=== PATIENT | female | born 1945 | race Caucasian/White ===

== ENCOUNTER 2017-12-25 11:12 | Emergency (ER) | payer MEDICARE, MEDICAID ==
[~2017-12-25] VITALS: Ht 154.9 cm; Wt 46.3 kg
[~2017-12-25 11:12] MED LIST: 24HOUR ALLERGY10 MG PO; ACID CONTROL20 MG; ALEVE220 MG PO; AMLODIPINE BESY10 MG; APAP500 PO; ARICEPT10 MG PO; ATIVAN0.5 MG; ATIVAN0.5 MG PO; AZITHROMYCIN 2250 MG PO; BACTRIM DS TAB1 EACH; BAYER CHEWABLE81 MG PO; BENADRYL25 MG PO; COLACE100 MG PO; COMPAZINE10 MG PO; CYMBALTA60 MG; DUONEB 2.5-0.5 M3 ML INH; ESCITALOPRAM OX20 MG PO; FENTANYL PA50 MCG/HR; FLONASE 0.05%50 MCG NASAL; FLUCONAZOLE 10100 MG PO; HYDROCODON-ACE1 EAC5; HYDROCODONE-APA1 TA1 PO; HYDROCORTISONE30 G9 MISCELL; IBUPROFEN 800800 M1 PO; KEFLEX500 MG PO; LASIX 40 MG TAB40 M2 PO; LASIX 80 MG TAB80 MG PO; LEVAQUIN 500 M500 M2 PO; LISINOPRIL20 MG PO; LOPRESSOR25; LOPRESSOR25 PO; MELATONIN3 MG; MUCINEX TA600 MG/TA2 PO; MUCINEX600 MG PO; MULTI VITAMIN1 EACH PO; NAMENDA 5 MG TAB5 M1 PO; NAMENDA XR14 MG; NORCO 10-325 T1 EACH PO; NYSTATIN 1100000 U/M PO; OCUVITE EYE +1 EACH PO; POTASSIUM CHLO20 ME1; PRED FORTE 1% EY5 M1 OPHTHALMIC; PREDNISONE 20 M20 MG PO; PREPARATION H O28 GM RC; SEROQUEL 25 MG25 M1; SEROQUEL 25 MG25 M1 PO; TESSALON PERLE100 MG PO; TRAMADOL 50 MG50 MG PO; TRIAMCINOLONE A80 G2 TOP; TUMS; VESICARE 5 MG TA5 MG PO; [UNRECOGNIZED DRUG - OTHER] OPHTHALMIC
[2017-12-25] MEDS ORDERED: LOPRESSOR50 PO (11:31)
[2017-12-25 11:46] LABS: ABSOLUTE EOSINOPHILS 0.3 thou/uL (0.0-0.7); ABSOLUTE LYMPHOCYTES 1.3 thou/uL (0.8-5.3); ABSOLUTE MONOCYTES 0.5 thou/uL (0.0-1.2); ABSOLUTE NEUTROPHILS 7.5 thou/uL (1.6-8.1); BASOPHILS 0.4 %; EOSINOPHILS 3.5 %; HEMATOCRIT 45.2 % (37.0-47.0); LYMPHOCYTES 13.1 %; MCH 31.6 pg (26.0-34.0); MCHC 33.2 g/dL (28.0-37.0); MCV 95.2 fL (80.0-100.0); MONOCYTES 5.6 %; MPV 8.5 fl. (7.2-11.1); NUCLEATED RBCS 0 /100WBC; PLATELET COUNT* 245 thou/uL (150-400); POLYS 77.4 %; RBC 4.75 mil/uL (4.20-5.00); RDW-CV 13.4 % (10.5-14.5); WBC 9.7 thou/uL (4.0-11.0)
[2017-12-25 11:57] LABS: ANION GAP 10 mmol/L (7-16); BUN 25 mg/dL (7-18); CALCIUM 8.8 mg/dL (8.5-10.1); CHLORIDE 105 mmol/L (98-107); CO2 27 mmol/L (21-32); CREATININE 0.9 mg/dL (0.6-1.3); GLUCOSE 88 mg/dL (70-99); POTASSIUM 3.1 mmol/L (3.5-5.1); SODIUM 142 mmol/L (136-145)
[2017-12-25 12:04] LABS: ALBUMIN 3.6 g/dL (3.4-5.0); ALKALINE PHOSPHATASE 83 U/L (46-116); SGOT 14 U/L (15-37); SGPT 14 U/L (30-65); TOTAL BILIRUBIN 0.7 mg/dL (<0.1-1.0); TOTAL PROTEIN 8.3 g/dL (6.4-8.2); TROPONIN-I LEVEL <0.06 ng/mL (<0.06)
[2017-12-25] MEDS ORDERED: TESSALON PERLE100 MG PO (12:22)
[2017-12-25] MEDS ORDERED: ZPAK PO (12:22)
[2017-12-25] MEDS ORDERED: POTASSIUM20 PO (12:23)
[2017-12-25 13:30] VITALS: BP 156/105
--- NOTE | 2017-12-26 11:17 | EKG ---
[place] [address] ELECTROCARDIOGRAM REPORT Name: JENNIFER RODRIGUES Room: [facility]#: [id number] Admission: 12/25/17 Attend Phys: Discharge: 12/25/17 Date of : 43 Report #: [id number] THIS REPORT FOR: //name// [facility] ED Test Date: 2017-12-25 Test Time: 12:40:09 Pat Name: JENNIFER RODRIGUES Department: Room: Gender: F Mine Exploration Engineer: ROSEANNA : 1945 Requested By: Jackie Bay Order Number: [id number] MD: Luis Jeffery Measurements Intervals [place] Rate: 63 P: 34 MA: 181 QRS: -9 QRSD: 83 T: 53 QT: 414 QTc: 424 Interpretive Statements Sinus rhythm nonspecific st changes Compared to ECG 05/11/2017 12:34:26 No significant changes Electronically Signed On 12-26-2017 11:17:07 CDT by Luis Jeffery [email or web address] <ELECTRONICALLY SIGNED> By: Luis Jeffery MD, [facility] 12/26/17 1117 1240 1240 Luis Jeffery MD, FACC /EPI
== END 2017-12-25 13:30 | disposition home or self-care (01) ==
LOC: M.ERS 11:12
PROVIDERS: Physician Assistant
DX: J20.9 Acute bronchitis, unspecified (principal); E87.6 Hypokalemia; Z88.8 Allergy status to other drugs, medicaments and biological substances

== ENCOUNTER 2018-05-30 14:23 | Inpatient (IN) | payer MEDICARE, MEDICAID ==
[~2018-05-30] VITALS: Ht 157.5 cm; Wt 52.6 kg
[~2018-05-30 14:23] MED LIST changes: +LOPRESSOR50 PO; +POTASSIUM20 PO; +ZPAK PO
[2018-05-30 14:24] VITALS: BP 128/59
[2018-05-30] MEDS ORDERED: ALBUTEROL2.5 MG/31 INH (14:35)
[2018-05-30] MEDS ORDERED: XANAX 0.25 MG0.25 MG PO (14:36)
[2018-05-30] MEDS ORDERED: IBUPROFEN 400400 M2 PO (14:38)
[2018-05-30] MEDS ORDERED: TRIAMCINOLONE A80 G2 TOP (14:39)
[2018-05-30 15:25] LABS: ABSOLUTE LYMPHOCYTES 1.4 thou/uL (0.8-5.3); ABSOLUTE MONOCYTES 0.7 thou/uL (0.0-1.2); ABSOLUTE NEUTROPHILS 4.2 thou/uL (1.6-8.1); BASOPHILS 0.6 %; EOSINOPHILS 0.1 %; HEMOGLOBIN 13.9 gm/dL (12.0-15.0); LYMPHOCYTES 22.6 %; MCH 31.9 pg (26.0-34.0); MCHC 33.1 g/dL (28.0-37.0); MCV 96.2 fL (80.0-100.0); MONOCYTES 11.2 %; MPV 8.5 fl. (7.2-11.1); NUCLEATED RBCS 0 /100WBC; PLATELET COUNT* 163 thou/uL (150-400); POLYS 65.5 %; RBC 4.36 mil/uL (4.20-5.00); RDW-CV 13.3 % (10.5-14.5); WBC 6.4 thou/uL (4.0-11.0)
[2018-05-30 15:35] LABS: CALCIUM 8.3 mg/dL (8.5-10.1); CREATININE 2.4 mg/dL (0.6-1.3); POTASSIUM 3.6 mmol/L (3.5-5.1)
[2018-05-30 15:44] LABS: BE -4.5 mmol/L (-2 to +3); HCO3 20.8 mmol/L (22.0-26.0); PCO2 39.2 mmHg (35.0-45.0); PO2 73.7 mmHg (75.0-100.0); pH 7.342 (7.340-7.450)
[2018-05-30 15:47] LABS: ALBUMIN 3.1 g/dL (3.4-5.0); MAGNESIUM 2.2 mg/dL (1.8-2.4); TOTAL BILIRUBIN 0.3 mg/dL (<0.1-1.0); TOTAL PROTEIN 7.4 g/dL (6.4-8.2)
[2018-05-30 16:13] LABS: URINE BILIRUBIN NEGATIVE (Negative); URINE BLOOD 3+ (Negative); URINE COLOR YELLOW; URINE GLUCOSE-RANDOM NEGATIVE (Negative); URINE KETONES NEGATIVE (Negative); URINE NITRITE-REFLEX NEGATIVE (Negative); URINE PROTEIN 1+ (Negative); URINE SPECIFIC GRAVITY >= 1.030 (1.005-1.030); URINE UROBILINOGEN 0.2 E.U./dl (0.2-1.0)
[2018-05-30 16:14] LABS: URINE CLARITY CLOUDY; URINE LEUKOCYTES-REFLEX 2+ (Negative)
[2018-05-30 16:23] LABS: CASTS None Seen /LPF (None Seen); CRYSTALS None Seen /LPF (None Seen); SQUAMOUS 0-3 Few /LPF (0-3); URINE RBC 0-2 Rare /HPF (0-2); URINE WBC-REFLEX >25 Many /HPF (0-5)
--- NOTE | 2018-05-30 16:31 | EKG ---
[place] [address] ELECTROCARDIOGRAM REPORT Name: JENNIFER RODRIGUES Room: [place] [address] ADM IN [facility]#: [id number] Admission: 05/30/18 Attend Phys: Tamara Whitman Discharge: Date of : 43 Report #: [id number] THIS REPORT FOR: //name// [facility] ED Test Date: 2018-05-30 Test Time: 15:53:22 Pat Name: JENNIFER RODRIGUES Department: Room: [facility] Gender: F Dental Coordinator: Sarah ORTEGA : 1945 Requested By: Jackie Swan Order Number: [id number] MD: Ortega Pitts Measurements Intervals [place] Rate: 75 P: 54 IN: 169 QRS: 9 QRSD: 85 T: 33 QT: 401 QTc: 448 Interpretive Statements Sinus rhythm Compared to ECG 12/25/2017 12:40:09 ST (T wave) deviation no longer present Electronically Signed On 05-30-2018 16:31:38 TRIMMER AND BORER MACHINE OPERATOR by Ortega Pitts [email or web address] <ELECTRONICALLY SIGNED> By: Ortega Pitts MD, FAC 05/30/18 1631 1553 1553 Ortega Pitts MD, [facility] /EPI
[2018-05-30 16:50] VITALS: BP 128/59
[2018-05-30 17:00] VITALS: BP 153/70
[2018-05-30 19:50] VITALS: BP 142/60
[2018-05-31] VITALS: BP 139/67
[2018-05-31 04:00] VITALS: BP 142/75
[2018-05-31 07:30] VITALS: BP 181/89
[2018-05-31 12:00] VITALS: BP 163/79
[2018-05-31 15:20] VITALS: BP 153/66
[2018-05-31 20:00] VITALS: BP 146/90
[2018-06-01] VITALS: BP 147/60
[2018-06-01 04:00] VITALS: BP 176/86
[2018-06-01 07:30] VITALS: BP 171/72
[2018-06-01 11:55] LABS: ALBUMIN 2.9 g/dL (3.4-5.0); POTASSIUM 3.5 mmol/L (3.5-5.1); TOTAL BILIRUBIN 0.2 mg/dL (<0.1-1.0); TOTAL PROTEIN 6.9 g/dL (6.4-8.2)
[2018-06-01 11:56] LABS: CREATININE 1.1 mg/dL (0.6-1.3)
[2018-06-01 12:00] VITALS: BP 118/69
[2018-06-01 16:51] VITALS: BP 167/70
[2018-06-01 20:00] VITALS: BP 154/64
[2018-06-02] VITALS: BP 127/47
[2018-06-02 04:00] VITALS: BP 116/50
[2018-06-02 07:30] VITALS: BP 151/50
[2018-06-02 10:03] VITALS: BP 151/50
[2018-06-02] MEDS ORDERED: OXYBUTYNIN 5 MG5 M2 PO (10:12)
[2018-06-02] MEDS ORDERED: CEFDINIR300 MG PO (10:12)
[2018-06-02 12:33] VITALS: BP 102/81
--- NOTE | 2018-06-10 15:44 | CON ---
[facility] [address] [place] [address] CONSULTATION Name: JENNIFER RODRIGUES Room: [address] IN .R.#: [id number] Admission: 05/30/18 Attend Phys: Tamara Whitman Discharge: 06/02/18 Date of : 43 Report #: [id number] THIS REPORT FOR: //name// CC: Tavon Braden DATE OF SERVICE: 05/31/2018 HISTORY OF PRESENT ILLNESS: This is a 73-year-old female patient who was evaluated by me for recurrent falls. This patient is a poor and reluctant historian. She does not provide any detailed history and she is pretty reluctant to provide most of the history for some reason. I got some history from her and I got some history from the records. This patient's sister is the durable power of research attorney and I discussed the patient with her. She provided some more history. Both the patient and the durable power of research attorney indicate that she had an aneurysm. Aneurysm was clipped in year 1999. That resulted in what they describe as a stroke. That affected the right side of the body. Since then, she had multiple falls. Further history about those falls is not very clear. Talking to the patient's sister, it would appear that this patient is noncompliant in her treatment. She has been given a brace to decrease her falls, but she will not use that brace very often. She usually complains of pain on multiple occasions and in fact has been admitted here as far back as 2017 for similar complaints. Sometime she complained of pain in the whole body. Because of this fall, she has multiple fractures in the body. She has not seen a neurologist or a neurosurgeon since 1999, but she sees a psychiatrist on a regular basis. Psychiatrist has put her on multiple medications. The sister indicated that she does not like those medications, but the patient becomes uncontrollable without those medications. Reviewing the record, it would indicate that this patient is also on donepezil as well as memantine, although on the lower dose, indicating that she probably carries a diagnosis of dementia also. Review of systems also indicates that she lives in a senior care. She has a chronic right-sided weakness. This is from her stroke. Presently, she is admitted with renal failure. Her GFR is 20. Her creatinine in December was normal and now it is 2.4. She did have electrolyte imbalances in the past going as far back as 2016 per records. She denies any history of seizure the best I can tell from her or from the sister, but she had multiple fractures in the body because of the falls since 1999. I carried out the 14-point review of systems and this was her relevant 14-point review of systems. PAST MEDICAL HISTORY: Positive for longstanding weakness on the right side and multiple other problems, and the biggest one appeared [place] [address] CONSULTATION Name: JENNIFER RODRIGUES Room: [address] IN M.R.#: [id number] Admission: 05/30/18 Attend Phys: Tamara Whitman Discharge: 06/02/18 Date of : 43 Report #: [id number] FAMILY HISTORY: Negative for congenital epilepsy. SOCIAL HISTORY: She lives in [facility] and her sister is the one who provides most of the history. PHYSICAL EXAMINATION: Indicate that she is alert and responsive. She can follow simple commands. She can tell me what month it is, but could not tell me what day it is. She knew she was in [facility] and was able to name the president. She remembers 0 out of 3 objects at 2 minutes interval. I am not sure how good effort she put in. Her speech looked intact, but she did have trouble with both memory and fund of knowledge. Cranial nerve examination 2-12 was attempted. The patient was not very cooperative with examinations. I cannot tell for sure about the visual field in this patient, but I did not see much gross abnormality. The sister mentioned that she has swallowing difficulty for a long period of time and that started in year 1999 in relation to her surgery and something happened focally there if I understand correctly. Her biggest neurological deficit appeared to be present in the right foot where she has very limited movements and this is since her aneurysm's clipping, which led to the stroke. She did not cooperate with the position sense or reflex checking. I tried to do the fundus examinations, I do not believe there is a papilledema, but I cannot have a very good look at it. She is a moderately built individual whose hearing and vision is adequate. She has no thyroid mass. Cardiac examinations appear unremarkable. No respiratory difficulty or rhonchi was noticed. Her blood pressure is fluctuating, last blood pressure was 181/89, respiration is 16, pulse is 88, and temperature is 98.8. LABORATORY DATA: Indicate a WBC count of 6.4. Her calcium is slightly low, but her albumin is also trace low, but rest of the lab looks mostly unremarkable except renal failure. IMPRESSION: 1. This patient has a longstanding history of right-sided weakness after her aneurysm surgery. That appeared to have become worse recently with the renal failure. The patient's cooperation was very poor today and according to the sister, she has been noncompliant. She will not wear the brace and will not do multiple other things which she and health professionals want her to do and that has caused major problem since 1999 in this patient. 2. She does have some swallowing difficulty, but that has been present for a long time. We will get her evaluated by Speech Therapy during this admission. 3. She carries the diagnosis of dementia. She may have dementia, but that needs further workup as an outpatient. She is already on donepezil and Namenda and we can continue for the time being and do some further workup [place] [address] CONSULTATION Name: JENNIFER RODRIGUES Room: [address] IN [facility].#: [id number] Admission: 05/30/18 Attend Phys: Tamara Whitman Discharge: 06/02/18 Date of : 43 Report #: [id number] RECOMMENDATIONS: 1. We will get her evaluated by PT, OT. 2. She will need to wear the brace. Otherwise, she will continue to be unstable. 3. We will get her evaluated by Speech Therapy because of chronic difficulty with swallowing, which sister mentioned. 4. I will go ahead and get a CT scan of the head done to make sure there is no jail sequela to the patient's prior history of aneurysms. From all indication, it looks like the patient is going to be management problem because according to the sister she has not followed the medical advice in the past and she has multiple intractable problems. Thank you very much for this referral and we will follow this patient along with you. <ELECTRONICALLY SIGNED> By: Sylvester Hutchins MD 06/10/18 1544 1003 1325Sylvester Hutchins MD /nt
== END 2018-06-02 15:44 | DRG 682 ==
LOC: M.ERS 14:23 → M.TBA-ER 15:46 → M.2W 15:46
PROVIDERS: Personal Emergency Response Attendant; ADMIT Internal Medicine
DX: N17.0 Acute kidney failure with tubular necrosis (principal); G93.41 Metabolic encephalopathy; N39.0 Urinary tract infection, site not specified; E83.51 Hypocalcemia; R32 Unspecified urinary incontinence; F03.90 Unspecified dementia, unspecified severity, without behavioral disturbance, psychotic disturbance, mood disturbance, and anxiety; I10 Essential (primary) hypertension; Z88.8 Allergy status to other drugs, medicaments and biological substances; Z91.19 Patient's noncompliance with other medical treatment and regimen; Z87.891 Personal history of nicotine dependence; Z79.82 Long term (current) use of aspirin

== ENCOUNTER 2018-06-24 13:21 | Inpatient (IN) | payer MEDICARE, MEDICAID ==
[~2018-06-24] VITALS: Ht 157.5 cm; Wt 51.3 kg
--- NOTE | ~2018-06-24 | CON ---
[address] [address] CONSULTATION Name: JENNIFER RODRIGUES Room: [address] IN [facility]#: [id number] Admission: 06/24/18 Attend Phys: Jud Roberts MD Discharge: Date of : 43 Report #: [id number] THIS REPORT FOR: //name// CC: Tavon Roberts MD DATE OF SERVICE: 06/24/2018 REQUESTING PHYSICIAN: Dr. Jud Roberts. REASON FOR CONSULT: Dysphagia. HISTORY OF PRESENT ILLNESS: This is a 73-year-old female with a history of hypoxia, who had suffered a fall at home and was admitted to hospital. She denies using O2 at home, but currently using 3 liters of O2. The patient reports that she has had intermittent problem with dysphagia and her swallow study here recommended to thicken her fluids. She complains of some generalized pain and weakness due to her falling and remaining on the floor for a while prior to getting the help and being admitted. The patient also denies ever having any colonoscopies and reports that she is pretty regular and she moves her bowel once a day. PAST MEDICAL HISTORY: Significant for history of depression; anxiety; hypertension; chronic kidney disease; CHF; shoulder, hip, leg and foot fracture in the past. ALLERGIES: Significant to NICKEL. MEDICATIONS: Please refer to hospital MAR. SOCIAL HISTORY: The patient has 7 family members who live closer, but she lives alone. She uses a walker at home and she had recently suffered a fall. She denies tobacco or alcohol use. FAMILY HISTORY: Negative for GI malignancy. PHYSICAL EXAMINATION: VITAL SIGNS: Reveals blood pressure of 177/78, respiration 15, pulse 63, temperature 97.7. LUNGS: Clear to auscultation bilaterally. CARDIOVASCULAR: Regular rate. ABDOMEN: Soft, nontender, nondistended. Bowel sounds are positive. LABORATORY DATA: Labs reveal sodium of 145, potassium 3.9, BUN is 18, creatinine 1.1, AST 16, ALT is 16, alkaline phosphatase 76, [place] [address] CONSULTATION Name: JENNIFER RODRIGUES Room: [address]#: [id number] Admission: 06/24/18 Attend Phys: Jud Roberts MD Discharge: Date of : 43 Report #: [id number] 1.0, albumin is 3.3. INR is 1.1. WBC is 8.7 with hemoglobin of 11.1 and platelets of 197. IMAGING: The patient had a PA and lateral chest x-ray, which showed no acute cardiopulmonary abnormalities. ASSESSMENT AND PLAN: The patient with borderline anemia, who has dysphagia and was recommended to thickened fluids. She currently denies any gastrointestinal symptoms and refuses having any endoscopic evaluation. It would be reasonable for her to have upper scope to further evaluate her dysphagia. She will also benefit from a colonoscopy to further evaluate her anemia since she has never had a colonoscopy. Since the patient refusing any endoscopic evaluation, we will stand by and if she changes her mind, we will proceed. By: 1422 1457Quinn Flores MD /nt
[~2018-06-24 13:21] MED LIST changes: +ALBUTEROL2.5 MG/31 INH; +CEFDINIR300 MG PO; +IBUPROFEN 400400 M2 PO; +OXYBUTYNIN 5 MG5 M2 PO; +XANAX 0.25 MG0.25 MG PO
[2018-06-24 13:23] VITALS: BP 128/65
[2018-06-24 14:04] LABS: ABSOLUTE BASOPHILS 0.2 thou/uL (0.0-0.2); ABSOLUTE EOSINOPHILS 0.4 thou/uL (0.0-0.7); ABSOLUTE LYMPHOCYTES 2.3 thou/uL (0.8-5.3); ABSOLUTE MONOCYTES 0.9 thou/uL (0.0-1.2); ABSOLUTE NEUTROPHILS 10.8 thou/uL (1.6-8.1); BASOPHILS 1.3 %; EOSINOPHILS 2.8 %; HEMATOCRIT 38.4 % (37.0-47.0); HEMOGLOBIN 12.5 gm/dL (12.0-15.0); LYMPHOCYTES 15.5 %; MCH 30.9 pg (26.0-34.0); MCHC 32.5 g/dL (28.0-37.0); MCV 94.9 fL (80.0-100.0); MONOCYTES 6.1 %; MPV 8.1 fl. (7.2-11.1); NUCLEATED RBCS 0 /100WBC; PLATELET COUNT* 302 thou/uL (150-400); POLYS 74.3 %; RBC 4.05 mil/uL (4.20-5.00); WBC 14.6 thou/uL (4.0-11.0)
[2018-06-24 14:12] LABS: ANION GAP 9 mmol/L (7-16); BUN 16 mg/dL (7-18); CALCIUM 8.7 mg/dL (8.5-10.1); CHLORIDE 104 mmol/L (98-107); CO2 28 mmol/L (21-32); CREATININE 1.2 mg/dL (0.6-1.3); GLUCOSE 109 mg/dL (70-99); POTASSIUM 3.2 mmol/L (3.5-5.1); SODIUM 141 mmol/L (136-145)
[2018-06-24 14:19] LABS: ALBUMIN 3.1 g/dL (3.4-5.0); ALKALINE PHOSPHATASE 88 U/L (46-116); SGOT 15 U/L (15-37); SGPT 12 U/L (30-65); TOTAL BILIRUBIN 0.5 mg/dL (<0.1-1.0); TOTAL PROTEIN 7.3 g/dL (6.4-8.2); TROPONIN-I LEVEL <0.06 ng/mL (<0.06)
[2018-06-24 16:02] VITALS: BP 149/78
[2018-06-24 16:24] LABS: MAGNESIUM 1.8 mg/dL (1.8-2.4)
[2018-06-24 16:41] VITALS: BP 164/61
--- NOTE | 2018-06-24 17:02 | NUR ---
PATIENT ADMITTED TO ROOM 311 FROM ER. PATIENT IS A RESIDENT OF [facility]. PATIENT ALERT AND ORIENTED BUT IS VERY ANXIOUS AND CONFUSED AT TIMES. RATING RIGHT HIP PAIN AN 8/10, DR. RM NOTIFIED FOR PAIN MEDICATIONS. IV SL, SCHED ABX INFUSED. PATIENT CONTINUALLY TAKING OFF SAT 85% ON RA. PATIENT CURRENTLY ON 2.5L. NO SKIN BREAKDOWN NOTED. FALL RISK PROTOCOL IN PLACE. BED ALARM ON FOR PATIENT SAFETY. ORIENTED TO CALL LIGHT, CALL LIGHT WITHIN REACH. WILL CONTINUE TO MONITOR.
[2018-06-24 20:50] VITALS: BP 143/71
[2018-06-25 02:06] LABS: URINE BILIRUBIN NEGATIVE (Negative); URINE BLOOD 1+ (Negative); URINE CLARITY CLEAR; URINE COLOR YELLOW; URINE GLUCOSE-RANDOM NEGATIVE (Negative); URINE KETONES NEGATIVE (Negative); URINE LEUKOCYTES-REFLEX NEGATIVE (Negative); URINE NITRITE-REFLEX NEGATIVE (Negative); URINE PROTEIN NEGATIVE (Negative); URINE UROBILINOGEN 0.2 E.U./dl (0.2-1.0)
[2018-06-25 04:33] LABS: HYALINE CASTS 0-3 Few /LPF (None Seen); SQUAMOUS >10 Many /LPF (0-3)
[2018-06-25 04:34] LABS: BACTERIA-REFLEX 1-9 Few /HPF (None Seen); CRYSTALS None Seen /LPF (None Seen); RENAL EPITHELIAL CELLS 4-10 Moderate /LPF (None Seen); URINE RBC 0-2 Rare /HPF (0-2); URINE WBC-REFLEX 0-5 Rare /HPF (0-5)
--- NOTE | 2018-06-25 04:50 | NUR ---
PATIENT HAS REMAINED ALERT AND ORIENTED X 4 WITH SOME FORGETFULNESS THROUGHOUT THE SHIFT AND RESTING AT INTERVALS ON HOURLY ROUNDS. RESTLESS AND ANXIOUS PRIOR TO HS MEDS. IMPROVEMENT WITH DECREASED ANXIETY AND RESTLESSNESS REMAINDER OF THE SHIFT. TURNING SELF IN BED. ASSISTED WITH CHANGE IN INCONT PADS. LOOSE COUGH NOTED AT TIMES. RT TX PER ORDER. DENIED SHORTNESS OF AIR. VITAL SIGNS STABLE. URINE FOR UA SENT TO LAB OVERNIGHT. POTASSIUM AND MAGNESIUM REPLACED. AM LAB RESULTS PENDING. CONTINUE TO MONITOR.
[2018-06-25 05:17] LABS: HEMATOCRIT 39.1 % (37.0-47.0); HEMOGLOBIN 12.8 gm/dL (12.0-15.0); MCH 31.1 pg (26.0-34.0); MCHC 32.7 g/dL (28.0-37.0); MCV 95.2 fL (80.0-100.0); MPV 8.6 fl. (7.2-11.1); NUCLEATED RBCS 0 /100WBC; PLATELET COUNT* 299 thou/uL (150-400); RBC 4.11 mil/uL (4.20-5.00); RDW-CV 13.6 % (10.5-14.5); WBC 11.8 thou/uL (4.0-11.0)
[2018-06-25 05:33] LABS: ALBUMIN 3.2 g/dL (3.4-5.0); CALCIUM 9.1 mg/dL (8.5-10.1); CREATININE 1.3 mg/dL (0.6-1.3); MAGNESIUM 1.8 mg/dL (1.8-2.4); PHOSPHORUS* 2.5 mg/dL (2.5-4.9); TOTAL BILIRUBIN 0.5 mg/dL (<0.1-1.0); TOTAL PROTEIN 7.7 g/dL (6.4-8.2)
[2018-06-25 05:53] LABS: POTASSIUM 4.5 mmol/L (3.5-5.1)
[2018-06-25] MEDS ORDERED: XANAX 0.25 MG0.25 MG PO (07:16)
[2018-06-25 08:09] VITALS: BP 149/85
[2018-06-25 08:09] LABS: ABSOLUTE LYMPHOCYTES 1.3 thou/uL (0.8-5.3); ABSOLUTE NEUTROPHILS 10.5 thou/uL (1.6-8.1)
[2018-06-25 08:10] LABS: PLATELET ESTIMATE ADEQUATE
[2018-06-25 11:05] LABS: BE -0.9 mmol/L (-2 to +3); HCO3 21.9 mmol/L (22.0-26.0); PCO2 31.2 mmHg (35.0-45.0); pH 7.464 (7.340-7.450)
[2018-06-25 11:06] LABS: PO2 143.4 mmHg (75.0-100.0)
--- NOTE | 2018-06-25 13:17 | NUR ---
1300 Patient discharged via wheelchair assisted by nursing staff to spouse's vehicle. Pt able to self transfer, rx given, d/c paperwork covered and pt expressed understanding.
[2018-06-25 17:05] VITALS: BP 137/64
[2018-06-25 20:00] VITALS: BP 151/64
--- NOTE | 2018-06-26 04:34 | NUR ---
PT A&Ox4. VITALS STABLE. BP 151/64, P 75, RESP 18, TEMP 98.4. RT PUT PT ON BIPAP FOR THE NIGHT. STAND BY ASSIST TO CAMMODE. HOB ELEVATED. IV IN R FA [place], SL. INCREASED ANXIETY AT BEGINING OF SHIFT. ATIVAN GIVEN, SLEEPING SOUNDLY. FALL PRECAUTIONS IN PLACE. CALL LIGHT WITHIN REACH. WILL CONTINUE TO MONITOR.
--- NOTE | 2018-06-26 05:58 | NUR ---
ORAL MEDS HELD DUE TO COUGHING AND CHOKING. WAITING FOR ST TO ASSESS.
[2018-06-26 07:31] VITALS: BP 168/68
--- NOTE | 2018-06-26 10:25 | EKG ---
[place] [address] ELECTROCARDIOGRAM REPORT Name: JENNIFER RODRIGUES Room: [address] ADM IN [facility].#: [id number] Admission: 06/24/18 Attend Phys: Jud Roberts MD Discharge: Date of : 43 Report #: [id number] THIS REPORT FOR: //name// [facility] ED Test Date: 2018-06-24 Test Time: 14:04:05 Pat Name: JENNIFER RODRIGUES Department: Room: [facility] Gender: F Customer Advisor: Tamara GOINS : 1945 Requested By: Del dEdy Order Number: [id number] MD: Luis Jeffery Measurements Intervals [place] Rate: 58 P: 35 OR: 171 QRS: -3 QRSD: 84 T: 23 QT: 430 QTc: 423 Interpretive Statements Sinus rhythm nonspecific st changes Compared to ECG 05/30/2018 15:53:22 No significant changes Electronically Signed On 06-26-2018 10:25:24 DOMESTIC CLEANER by Luis Jeffery [email or web address] <ELECTRONICALLY SIGNED> By: Luis Jeffery MD, [facility] 06/26/18 1025 1404 1404 Luis Jeffery MD, [facility] /EPI
[2018-06-26 16:00] VITALS: BP 172/88
--- NOTE | 2018-06-26 16:27 | NUR ---
PT.LIVES AT [facility]. SHE USES A WALKER AND CAN WALK TO THE DINING ROOM. THEY PROVIDE MEALS AND HER MEDICATIONS FOR HER. SHE HOPES TO BE ABLE TO GO BACK TO HER APT.INSTEAD OF HAVING TO GO TO A SNF BED. TOLD HER SHE DID PRETTY WELL IN THERAPY TODAY BUT WILL SEE HOW SHE DOES TOMORROW.
--- NOTE | 2018-06-26 16:57 | NUR ---
ASSESSMENT COMPLETE. PT SLEPT PART OF THE DAY. PT STILL FORGETFUL AND IMPULSIVE. PT INCONT OF URINE DURING THE DAY. PT IS FALL RISK, BED ALARM ON. IV FLUIDS STARTED. PT IS ON 3L PER NC WITH [place] SATS. BIPAP OVERNIGHT. SKIN INTACT. PT GETS ANXIOUS, PRN ATIVAN GIVEN NEEDED. REPEAT ABG'S IN THE AM, ECHO ORDERED FOR TOMORROW. PT IS NPO AND ST EVAL AND TREAT ORDERED FOR COUGHING/CHOKING WHEN DRINKING LIQUIDS. SEE ASSESSMENT AND VITALS FOR OTHER DETAILS. CALL LIGHT WITHIN REACH, WILL CONTINUE PLAN OF CARE
[2018-06-26 19:40] VITALS: BP 167/53
[2018-06-27 04:27] LABS: HEMATOCRIT 35.6 % (37.0-47.0); HEMOGLOBIN 11.8 gm/dL (12.0-15.0); MCH 31.8 pg (26.0-34.0); MCHC 33.1 g/dL (28.0-37.0); MCV 96.2 fL (80.0-100.0); MPV 8.3 fl. (7.2-11.1); RBC 3.7 mil/uL (4.20-5.00); RDW-CV 14.4 % (10.5-14.5)
[2018-06-27 04:45] LABS: ALBUMIN 3.3 g/dL (3.4-5.0); CALCIUM 8.6 mg/dL (8.5-10.1); CREATININE 1.1 mg/dL (0.6-1.3); MAGNESIUM 2.4 mg/dL (1.8-2.4); POTASSIUM 3.9 mmol/L (3.5-5.1); TOTAL PROTEIN 6.9 g/dL (6.4-8.2)
--- NOTE | 2018-06-27 05:19 | NUR ---
PT SLEPT MOST OF SHIFT. ASSESSMENT DOCUMENTED. PT REFUSED LOVENOX INJECTION THIS SHIFT. PO MEDS NOT GIVEN DUE TO NPO STATUS. BIPAP WORN FOR MOST OF SHIFT. ANXIETY MEDS GIVEN PER E-MAR WITH RELIEF. IV PATENT, FLUIDS INFUSING. WILL CONTINUE WITH PLAN OF CARE.
[2018-06-27 07:45] VITALS: BP 182/81
--- NOTE | 2018-06-27 07:55 | CON ---
[address] [address] CONSULTATION Name: JENNIFER RODRIGUES Room: [address] IN [facility]#: [id number] Admission: 06/24/18 Attend Phys: Jud Roberts MD Discharge: Date of : 43 Report #: [id number] THIS REPORT FOR: //name// CC: Tavon Roberts DATE OF SERVICE: 06/26/2018 PULMONARY CONSULTATION LOCATION: She is located in room [facility] up on 3rd floor. INDICATION FOR CONSULTATION: Hypoxemia, COPD, dyspnea. HISTORY OF PRESENT ILLNESS: The patient is a 73-year-old female, prior smoker with multiple medical problems. She was sent in from the alf late on the afternoon on Tuesday, 06/24 for shortness of breath. Her O2 sat supposedly was in the 70s, was placed on oxygen, received albuterol treatments and had improvement in the oxygen level. She was on 2-3 liters, was doing okay than yesterday. Yesterday afternoon, she was throwing things at the nurses, throwing food on. She states she was more short of breath and then early this morning demanded to be put on something else. She was placed on BiPAP. She is still somewhat anxious. She can answer a few questions for me, but most of the history I got from one physical exam that Dr. Rebolledo did on her in the office on 09/07/2016, when he saw her there also for lung nodules and hypoxemia. She also had COPD and emphysema at that time. She is on oxygen, I believe at the alf, but she only wears it p.r.n. She has some cough and wheezing. She has dementia. Her history is not good, not accurate. Her sister is Latrice Limon, who lives in [place], [place] and she appears to be her durable power of managing attorney is a more accurate historian. The patient appears to intermittently aspirate from a previous stroke. 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 It appeared she had a tracheostomy tube at that time and also had a PEG tube at that time. Somewhere a year or two later, she had both of those removed and she was decannulated. She also has chronic bronchitis, COPD and emphysema, uncontrolled hypertension, dementia, urinary incontinence, mood disorder and insomnia. Also, has a history of chronic urinary tract infections. PAST SURGICAL HISTORY: She has had a right hip pinned in 1997. She had a shoulder surgery in 2012. She had an aneurysm with left-sided intracerebral hemorrhage and right-sided hemiparesis, difficulty swallowing in the year 1999. She has also had pneumonia one other time in 06/2016. ALLERGIES: SHE HAS ALLERGIES OR INTOLERANCE TO NICKEL, [place] [address] CONSULTATION Name: JENNIFER RODRIGUES Room: [address]#: [id number] Admission: 06/24/18 Attend Phys: Jud Roberts MD Discharge: Date of : 43 Report #: [id number] RASH AND CONTACT DERMATITIS. OUTPATIENT MEDICATIONS: Included aspirin 81 mg daily, donepezil or Aricept 10 mg at bedtime, escitalopram oxalate 20 mg daily, Seroquel 25 mg t.i.d., Tessalon Perles 100 mg t.i.d. cough, Flonase nasal spray, lorazepam 0.5 mg b.i.d. anxiety, lisinopril 40 mg daily, metoprolol 75 mg b.i.d., albuterol nebulizer treatments 3-4 times a day at home. She is also on a prednisone taper at this time at 40 mg daily. Also, she has just been placed on azithromycin 250 mg daily. She previously was on cefdinir some time ago in the [facility]. SOCIAL HISTORY: She has a prior 30-40 pack year history of smoking, quit about 10-15 years ago. Denies any alcohol or illicit drug use. She is and lives alone in the [facility]. Again, her sister, Latrice Limon is durable power of managing attorney. It appears she is a full code blue at this time. REVIEW OF SYSTEMS: A 14-point review of systems reviewed and negative except for pertinent positives noted in the HPI. RESPIRATORY: She had cough, wheezing and shortness of breath. CARDIOVASCULAR: She denies any chest pain or palpitations. CONSTITUTIONAL: No fever, chills, night sweats, weight loss. EYES: No visual changes. EARS, NOSE AND THROAT: She does have difficulty swallowing and occasionally coughs. GASTROINTESTINAL: She has difficulty swallowing, some dysphagia. GENITOURINARY: She has some occasional urinary tract infections. ENDOCRINE: Denies diabetes or thyroid disease. SKIN: Denies any rashes or lesions. NEUROLOGIC: Old stroke and right-sided weakness. PHYSICAL EXAMINATION: GENERAL: A 73-year-old female, somewhat agitated and anxious, not answering my questions very well. VITAL SIGNS: Blood pressure is 168/70, heart rate 72, respirations 16. She is afebrile. She is 5 feet 3 inches tall, weight 51 kilograms or 108 pounds, BMI is 20. HEENT: Pupils are midpoint and reactive. She stays in the position on the bed, although she can straighten out her legs when I ask her to. She is wearing BiPAP now, soon to be switched to O2 at 3 liters, saturation on 3 liters is 94%. Nares and pharynx are clear. She has an old tracheostomy scar. CHEST: Shows a few rhonchi and expiratory wheeze. CARDIOVASCULAR: Regular rate and rhythm without murmur, gallop or rub. Heart rate is 72. ABDOMEN: Soft, without masses or megaly. There appears to be an old PEG scar in the left upper quadrant. EXTREMITIES: There is no cyanosis, clubbing or edema. Again, she may have some mild flexion contractures, but she can straighten out [place] [address] CONSULTATION Name: JENNIFER RODRIGUES Room: [address] IN [facility]#: [id number] Admission: 06/24/18 Attend Phys: Jud Roberts MD Discharge: Date of : 43 Report #: [id number]. NEUROLOGIC: She has some right arm and possibly some right leg weakness on exam. She is not very cooperative. SKIN: Dry and intact. LABORATORY DATA: From 06/25/2018 from 24 hours ago, hemoglobin is 13, white count 11,800, normal differential, platelets 299,000. Mild increase in absolute neutrophils of 10,000. Sodium is 139, potassium is 4.5, chloride is 105, BUN is 18, creatinine is 1.8, glucose is 139. AST and ALT were both low at 13 and 12 respectively. Anti-proBNP mildly elevated at 2708. TSH was low at 0.35 and then albumin was low at 3.2. ABG on AVAPS on 06/25 at 11:00 a.m. shows a pO2 of 143, a pH of 7.46, pCO2 is 31 with a bicarbonate of 22 and a sat of 98%. That was on 100% AVAPS with a tidal volume of 500. Chest x-ray shows COPD, hyperinflation, no infiltrates, no definite CHF noted. It was also seen on CT angio of the chest and no pulmonary emboli. Echo is pending. IMPRESSION: 1. Dyspnea and anxiety, multifactorial. 2. Chronic obstructive pulmonary disease, probably moderate to moderately severe from prior cigarette smoking. 3. Probably intermittent aspiration with previous stroke. 4. Anxiety and dementia. PLAN: Continue current meds. We will keep her on oxygen at 3 liters. If needed, we may check one more blood gas just to make sure she is not having CO2 retention since her first blood gas was done on the AVAPS. Bicarbonate is not elevated. I think she would benefit from taking breathing treatments routinely if she continues to do that at the nursing center. We can also add montelukast and keep her on a prednisone taper. Hopefully, she will be compliant with these. Would probably talk to her about code and ventilator status again and see if she really wants to be a full code blue. I do not imagine she would do well on the ventilator with life support machines. Also, probably need to talk with her sister. There are no significant pulmonary nodules noted on the CT scan, so I do not think we need to follow up on those. I do not think she has lung cancer at this time. We will continue to see how she does on her oxygen at 3 liters and then reevaluate. Thanks again for allowing us to participate in this lady's care. We will follow up along with you. <ELECTRONICALLY SIGNED> By: German Wilhelm MD 06/27/18 0755 1216 1914Antheidi Wilhelm MD /stepan
[2018-06-27 09:01] LABS: BE -0.4 mmol/L (-2 to +3); HCO3 23.1 mmol/L (22.0-26.0); PCO2 34.4 mmHg (35.0-45.0); PO2 88.6 mmHg (75.0-100.0); pH 7.445 (7.340-7.450)
--- NOTE | 2018-06-27 13:38 | NUR ---
PHP ARCHITECT SPOKE TO FRANK WITH [facility] TO INFORM THAT THE PATIENT MAY NEED SKILLED AT D/C. FRANK INFORMS THAT THE FACILTIY WILL HAVE A BED AVIALABLE, AND TO SEND REFERRAL. D/C [employer] FAXED PATIENT'S FACESHEET, H&P, VITALS, MED LIST, AND PT NOTE TO [facility]. D/C [employer] ALSO CALLED AND LEFT A MESSAGE FOR FRANK TO RETURN CALL TO INFORM IF PATIENT USES A CPAP AT THE FACILITY. CM WILL RMAIN AVIALABLE TO ASSIST AND FOLLOW NEEDED.
--- NOTE | 2018-06-27 14:00 | 2DMMODE ---
[place] [address] 2 D/M-MODE ECHOCARDIOGRAM Name: JENNIFER RODRIGUES Room: [address] IN [facility]#: [id number] Admission: 06/24/18 Attend Phys: Jud Roberts MD Discharge: Date of : 43 Date of Service: 06/27/18 1359 Report #: [id number] THIS REPORT FOR: //name// APPROVED REPORT Study performed: 06/27/2018 11:22:56 EXAM: Comprehensive 2D, Doppler, and color-flow Echocardiogram Patient Location: In-Patient Room #: [facility] BSA: 1.50 HR: 84 bpm BP: 182/81 mmHg Other Information Technically limited study due to uncooperative patient, could not complete test. Indications Dyspnea 2D Dimensions IVSd: 9.82 (7-11mm) LVOT Diam: 19.54 (18-24mm) LVDd: 40.55 mm PWd: 11.87 (7-11mm) Ascending Ao: 28.11 (22-36mm) LVDs: 21.45 (25-40mm) Aortic Root: 29.17 mm Volumes Left Atrial Volume (Systole) LA ESV Index: 31.40 mL/m2 Mitral Valve E/A Ratio: 0.87 MV Decel. Time: 161.61 ms MV E Max Gustavo.: 0.65 m/s MV PHT: 46.87 ms MVA (PHT): 4.69 cm2 Pulmonary Valve PV Peak Gustavo.: 0.83 m/s PV Peak Gr.: 2.74 mmHg Left Ventricle The left ventricle is normal size. There [place] [address] 2 D/M-MODE ECHOCARDIOGRAM Name: JENNIFER RODRIGUES Room: [address] IN [facility]#: [id number] Admission: 06/24/18 Attend Phys: Jud Roberts MD Discharge: Date of : 43 Date of Service: 06/27/18 1359 Report #: [id number] motion. There is normal left ventricular wall thickness. Left ventricular systolic function is normal. The left ventricular ejection fraction is within the normal range. LVEF is 55-60%. The left ventricular diastolic function is normal. Right Ventricle The right ventricle is normal size. The right ventricular systolic function is normal. Atria The left atrium size is normal. The right atrium size is normal. Aortic Valve The aortic valve is normal in structure. No aortic regurgitation is present. There is no aortic valvular stenosis. Mitral Valve The mitral valve is normal in structure. There is no mitral valve regurgitation noted. No evidence of mitral valve stenosis. Tricuspid Valve The tricuspid valve is normal in structure. Pulmonic Valve The pulmonary valve is normal in structure. There is no pulmonic valvular regurgitation. Great Vessels The aortic root is normal in size. Pericardium There is no pericardial effusion. <Conclusion> LVEF is 55-60%. There is normal LV segmental wall motion. There is no aortic valvular stenosis. No aortic regurgitation is present. No evidence of mitral valve stenosis. There is no mitral valve regurgitation noted. <ELECTRONICALLY SIGNED> By: Ortega Pitts MD, FACC 06/27/18 1359 1359 1359 Ortega Pitts MD, FACC /INF
--- NOTE | 2018-06-27 14:51 | NUR ---
PER FRANK/DIALLO, PT.DOES NOT HAVE A CPAP THERE AT [facility].
[2018-06-27 16:48] VITALS: BP 224/129
[2018-06-27 16:49] VITALS: BP 219/112
--- NOTE | 2018-06-27 17:16 | NUR ---
PATIENT A&OX1-2, ANXIOUS, AGITATED, IMPULSIVE. ON 3L O2 VIA NC, DOES NOT LIKE TO WEAR BIPAP. NEW IV IN LEFT FOREARM FLUIDS INFUSSING. UP WITH ASSISTX1 WITH GAITBELT. INCONTINENT OF BOWEL AND BLADDER. PATIENT STATES SEVERAL TIMES SHE WANTS TO GO HOME, GET ME OUT OF HERE. RE EDUCATED THAT SHE CAN'T GO HOME TODAY. SISTER AT BEDSIDE, PATIENT CALMER AT THIS TIME. NO OTHER CONCERNS AT THIS TIME.
[2018-06-27 20:00] VITALS: BP 152/66
--- NOTE | 2018-06-28 04:14 | NUR ---
ASSUMED PT CARE AT 1930. NURSING ASSESSMENT COMPLETED AT START OF SHIFT. PT C/O GENERALIZED PAIN. PAIN MEDICATION ADMINISTERED, SEE EMAR. HOURLY ROUNDING COMPLETED. Q2H REPOSITIONING COMPLETED. PT COMPLIANT WITH BIPAP THIS SHIFT. CALL LIGHT WITHIN REACH.
[2018-06-28 04:55] LABS: HEMATOCRIT 33.4 % (37.0-47.0); HEMOGLOBIN 11.1 gm/dL (12.0-15.0); MCH 32.1 pg (26.0-34.0); MCHC 33.3 g/dL (28.0-37.0); MCV 96.3 fL (80.0-100.0); MPV 8.8 fl. (7.2-11.1); RBC 3.47 mil/uL (4.20-5.00); RDW-CV 14.2 % (10.5-14.5); WBC 8.7 thou/uL (4.0-11.0)
[2018-06-28 05:29] LABS: CALCIUM 8.3 mg/dL (8.5-10.1); CREATININE 1.1 mg/dL (0.6-1.3); MAGNESIUM 2.2 mg/dL (1.8-2.4); POTASSIUM 3.9 mmol/L (3.5-5.1)
[2018-06-28 07:15] VITALS: BP 177/78
--- NOTE | 2018-06-28 15:00 | NUR ---
CHECK TOTALER SPOKE TO FRANK WITH [facility] TO DISCUSS DISCHARGE PLANNING FOR THE PATIENT, AND TO INFORM THAT THE PATIENT MAY NEED A BIPAP AT D/C AND TO CONFIRM BED AVAILABILITY FOR THE PATIENT IN A SKILLED BED. FRANK CONFIRMS ABILITY TO ACCEPT THE PATIENT AT D/C AND THE ABILITY TO ACCEPT THE PATIENT WITH A BIPAP WHENEVER SHE IS READY. CM WILL REMAIN AVAILABLE TO ASSIST AND FOLLOW NEEDED.
--- NOTE | 2018-06-28 15:48 | NUR ---
ASSESSMENT COMPLETE. PT ALERT AND ORIENTED TO SELF, SITUATION, AND PLACE. FORGETFUL AND CONFUSED. PT REFUSING NEED FOR EGD AT THIS TIME, SISTER WILL CALLED AND STATES SHE WILL TALK TO HER ABOUT NEED FOR EVALUATION. PT HAS EGD SCHEDULED FOR TOMORROW, NPO AFTER MIDNIGHT. PT TOLERATING THICKENED LIQUIDS AND PO MEDICATIONS AT THIS TIME. DENIES PAIN AND N/V. PT WILL DC TO [facility] AND THEY HAVE BIPAP SET UP. PT CURRENTLY ON 3L PER NC DURING THE DAY AND BIPAP AT HS. PT IS INCONT AT TIMES. UP ONE ASSIST WITH WALKER AND GAIT BELT. PT IS FALL RISK, BED ALARM ON. PT IS Q2 TURN FOR SKIN INTEGRITY. PT/OT ORDERED AND SAW PT TODAY. SEE ASSESSMENT AND VITALS FOR OTHER DETAILS. CALL LIGHT WITHIN REACH, WILL CONTINUE PLAN OF CARE.
[2018-06-28 16:00] VITALS: BP 154/65
[2018-06-28 20:00] VITALS: BP 126/69
[2018-06-29 04:15] LABS: HEMATOCRIT 33.4 % (37.0-47.0); HEMOGLOBIN 11.1 gm/dL (12.0-15.0); MCHC 33.3 g/dL (28.0-37.0); MCV 96.1 fL (80.0-100.0); MPV 8.6 fl. (7.2-11.1); RBC 3.47 mil/uL (4.20-5.00); RDW-CV 14.3 % (10.5-14.5); WBC 8.6 thou/uL (4.0-11.0)
[2018-06-29 04:27] LABS: CALCIUM 8.4 mg/dL (8.5-10.1); MAGNESIUM 2.3 mg/dL (1.8-2.4); POTASSIUM 4.2 mmol/L (3.5-5.1)
--- NOTE | 2018-06-29 05:16 | NUR ---
ASSUMED CARE OF PT AT 1900 PT ALERT AND ORIENTED X 3 VS AND ASSESSMENT AT PTS BASELINE. PT DENIED ANY COMLAINTS AND WAS COMPLIANT WITH BIPAP OVERNIGHT. WILL CONTINUE PLAN OF CARE.
[2018-06-29 08:00] VITALS: BP 183/75
[2018-06-29 10:17] VITALS: BP 183/76
[2018-06-29 11:03] VITALS: BP 131/107
--- NOTE | 2018-06-29 17:28 | NUR ---
SHIFT NOTE - PT OFF UNIT THIS AM FOR EGD. PT RETURNED TO UNIT. PT ALERT/ORIENTED X 4 BUT FORGETFUL AT TIMES. O2 PRESENT AT 3L. WILL CONTINUE TO MONITOR.
[2018-06-29 20:00] VITALS: BP 132/73
--- NOTE | 2018-06-30 04:34 | NUR ---
ASSUMED CARE OF PT AFTER REPORT AT 1930. PT A&OX4. FORGETFUL AT TIMES. VSS. PHYSICAL ASSESSMENT COMPLETED AND CHARTED. PT ON O2 AT 3L WITH 92% O2 SAT. PT COMPLAINED OF GENERALIZED BODY PAIN-PAIN MEDS GIVEN PER MAR WITH PARTIAL RELIEF. PT REFUSED BIPAP TONIGHT EVEN AFTER EDUCATION WAS GIVEN. ABLE TO TOLERATE NECTAR THICK LIQUIDS WELL. CALL LIGHT WITHIN REACH. BED IN LOW POSITION.
[2018-06-30 08:00] VITALS: BP 185/78
--- NOTE | 2018-06-30 12:00 | NUR ---
SPOKE WITH FRANK/DIALLO ABOUT POSSIBLE DISCHARGE FOR TOMORROW. PT.CAN COME TO A SNF BED THERE WHEN DISCHARGED. PER SHELLI BRODY, PULMONARY SAID PT.WILL NEED 3 LITERS OF O2/NC. SHE SAID HE DID NOT ORDER A BIPAP FOR SNF. DAUGHTER IS AWARE OF POSSIBLE DISCHARGE FOR SAT. SHE SPOKE WITH NURSE JUST A LITTLE WHILE AGO.
[2018-06-30 12:23] VITALS: BP 188/106
[2018-06-30 16:15] VITALS: BP 164/67
--- NOTE | 2018-06-30 16:24 | NUR ---
PATIENT A&OX4, FORGETFUL AT TIMES. ON 3L O2, REFUSES BIPAP. IV RIGHT WRIST FLUIDS INFUSSING. UP WITH ASSISTX1 WITH GIATBELT, WALKER, STEADY GAIT. C/O MINIMAL GENERALIZED PAIN, RELIEF WITH MEDICATION. BEDSIDE SWALLOW AND VIDEO SWALLOW STUDY DONE TODAY. ABLE TO HAVE REGULAR DIET WITH THIN LIQUIDS, MEDICATIONS SHOULD BE CRUSHED IN APPLESAUCE. NO OTHER CONCERNS AT THIS TIME. APPROPRIATE AND COOPORATIVE WITH CARE.
[2018-07-01] VITALS: BP 133/51
[2018-07-01 04:50] LABS: HEMATOCRIT 33.6 % (37.0-47.0); HEMOGLOBIN 11.2 gm/dL (12.0-15.0); MCH 31.6 pg (26.0-34.0); MCHC 33.3 g/dL (28.0-37.0); MCV 94.8 fL (80.0-100.0); MPV 8.8 fl. (7.2-11.1); RBC 3.54 mil/uL (4.20-5.00); RDW-CV 13.8 % (10.5-14.5); WBC 8.9 thou/uL (4.0-11.0)
[2018-07-01 05:04] LABS: CALCIUM 8.3 mg/dL (8.5-10.1); CREATININE 0.9 mg/dL (0.6-1.3); POTASSIUM 4.1 mmol/L (3.5-5.1)
--- NOTE | 2018-07-01 06:42 | NUR ---
PATIENT SLEPT PART OF THE NIGHT. IV FLUIDS CONTINUE AT 50 ML/HR. PATIENT REFUSED TO WEAR HER BIPAP OVER NIGHT BUT REMAINS ON OXYGEN AT 2L. PATIENT IS POSSIBLY LEAVING TODAY. WILL CONTINUE TO MONITOR.
[2018-07-01 08:00] VITALS: BP 203/81
[2018-07-01] MEDS ORDERED: CATAPRES0.2 MG TRANSDERM (11:35)
[2018-07-01] MEDS ORDERED: PREDNISONE 20 M20 MG PO (11:39)
[2018-07-01] MEDS ORDERED: PROTONIX40 M1 PO (11:40)
[2018-07-01] MEDS ORDERED: AZITHROMYCIN 2250 MG PO (11:41)
--- NOTE | 2018-07-01 11:47 | NUR ---
Received order from physician to arrange d/c to SNF at [facility]. Spoke with fitness and wellness coordinator and faxed orders to facility. Chart copied. Spoke with dtr and she is agreeable with transfer. continuous improvement coordinator asked to have [facility] provide w/c van transport. Called [facility] and they will provide w/c van transport at [phone]. No other needs identified. [facility] [phone]; fax [phone] [facility] w/c van [phone]
[2018-07-01 12:21] VITALS: BP 128/71
--- NOTE | 2018-07-01 13:58 | NUR ---
PATIENT A&OX4, FORGETFUL AT TIMES. ON 3L O2 VIA NC, IV RIGHT WRIST, FLUIDS INFUSSING. UP WITH ASSISTX1 WITH GAITBELT AND WALKER. C/O GENERALIZED PAIN, RELIEF WITH MEDICATION. INCONTINENT AT TIMES OF BOWEL AND BLADDER. PATIENT DISCHARGED TO SKILLED FACILITY, CALLED REPORT AND SPOKE WITH SHAZIA. ALL QUESTIONS AND CONCERNS ANSWERED. PATIENT LEFT UNIT AT 1350 VIA W/C WITH TRANSPORTER VIA W/C VAN. ALL BELONGINNS TAKEN WITH PATIENT, NOTHING LEFT BEHIND. APPROPRIATE AND COOPORATIVE WITH CARE.
--- NOTE | 2018-07-03 11:07 | PATH ---
[address] [address] PATHOLOGY RPT PROCEDURE Name: LAUREL RODRIGUES Room: [address] IN .R.#: [id number] Admission: 06/24/18 Date of : 43 Discharge: 07/01/18 Report #: [id number] Path Case #: [id number] [facility] Accession Number: [id number] . 01 Material submitted: . GASTRIC BIOPSY . 01 Clinical history: . None provided . 02 Diagnosis: "Gastric biopsy", biopsy: - Gastric mucosa with mild reactive changes and minimal acute and chronic inflammation. - Negative H. pylori immunohistochemical stain (block A1); control reacted appropriately. (CLW:machelle; 06/30/2018) MBR/06/30/2018 . 02 Electronically signed: . Micheline Cifuentes MD, Pathologist NPI- [id number] . 01 Gross description: . Received in formalin labeled "Laurel Rodrigues, gastric biopsy," are 2 segments of weinberg soft tissue measuring 0.7 x 0.2 x 0.2 cm in aggregate dimensions and ranging from 0.3 to 0.4 cm in maximum dimension. The specimen is submitted entirely in cassette A1. (TSD; 06/29/2018) TOB/TOB . 02 Pathologist provided ICD-10: K29.00 . 02 CPT . 162377, [id number] Specimen Comment: A courtesy copy of this report has been sent to Specimen Comment: [phone], , . Specimen Comment: Report sent to ,DR RM / DR DUBOSE Specimen Comment: A duplicate report has been generated due to demographic updates. Performed at: [address] [id number] MD Mir Medina MD Phone: [phone] Performed at: 02 [facility] [address] [place], [place] [id number] [address] [address] PATHOLOGY RPT PROCEDURE Name: RAVILAUREL A Room: [address] IN M.R.#: [id number] Admission: 06/24/18 Date of : 43 Discharge: 07/01/18 Report #: [id number] Path Case #: [id number] MD Josh Matias MD Phone: [phone]
== END 2018-07-01 13:50 | DRG 177 ==
LOC: M.ERS 13:21 → M.TBA-ER 15:37 → M.3W 15:37
PROVIDERS: Emergency Medicine Emergency Medical Services; Family Medicine; Internal Medicine Pulmonary Disease; ADMIT Family Medicine
PROC: 5A09357 Assistance with Respiratory Ventilation, Less than 24 Consecutive Hours, Continuous Positive Airway Pressure (ICD-10-PCS; principal; 2018-06-26)
PROC: 5A09357 Assistance with Respiratory Ventilation, Less than 24 Consecutive Hours, Continuous Positive Airway Pressure (ICD-10-PCS; 2018-06-28)
PROC: 5A09357 Assistance with Respiratory Ventilation, Less than 24 Consecutive Hours, Continuous Positive Airway Pressure (ICD-10-PCS; 2018-06-29)
PROC: 0D758ZZ Dilation of Esophagus, Via Natural or Artificial Opening Endoscopic (ICD-10-PCS; 2018-06-29)
PROC: 0DB68ZX Excision of Stomach, Via Natural or Artificial Opening Endoscopic, Diagnostic (ICD-10-PCS; 2018-06-29)
PROC: 5A09357 Assistance with Respiratory Ventilation, Less than 24 Consecutive Hours, Continuous Positive Airway Pressure (ICD-10-PCS; 2018-06-30)
DX: J69.0 Pneumonitis due to inhalation of food and vomit (principal); J96.21 Acute and chronic respiratory failure with hypoxia; I50.33 Acute on chronic diastolic (congestive) heart failure; R65.10 Systemic inflammatory response syndrome (SIRS) of non-infectious origin without acute organ dysfunction; J44.1 Chronic obstructive pulmonary disease with (acute) exacerbation; I69.351 Hemiplegia and hemiparesis following cerebral infarction affecting right dominant side; I13.0 Hypertensive heart and chronic kidney disease with heart failure and stage 1 through stage 4 chronic kidney disease, or unspecified chronic kidney disease; K21.0 Gastro-esophageal reflux disease with esophagitis; K22.2 Esophageal obstruction; K44.9 Diaphragmatic hernia without obstruction or gangrene; K29.70 Gastritis, unspecified, without bleeding; G30.9 Alzheimer's disease, unspecified; F02.80 Dementia in other diseases classified elsewhere, unspecified severity, without behavioral disturbance, psychotic disturbance, mood disturbance, and anxiety; G47.00 Insomnia, unspecified; D64.9 Anemia, unspecified; R13.10 Dysphagia, unspecified; N18.3 Chronic kidney disease, stage 3 (moderate); F39 Unspecified mood [affective] disorder; Z99.81 Dependence on supplemental oxygen; Z93.0 Tracheostomy status; Z93.1 Gastrostomy status; Z88.8 Allergy status to other drugs, medicaments and biological substances; Z87.81 Personal history of (healed) traumatic fracture; Z87.891 Personal history of nicotine dependence

== ENCOUNTER → 2019-03-29 | Outpatient (CLI) | payer MEDICARE, MEDICAID ==
[~2019-03-29] MED LIST changes: +CATAPRES0.2 MG TRANSDERM; +PROTONIX40 M1 PO
== END ==
LOC: M.CT 10:52
DX: I67.1 Cerebral aneurysm, nonruptured (principal); E07.89 Other specified disorders of thyroid; J43.9 Emphysema, unspecified; Z79.899 Other long term (current) drug therapy

== ENCOUNTER 2021-04-25 12:31 | Emergency (ER) | payer MEDICARE, MEDICAID ==
[~2021-04-25] VITALS: Ht 152.4 cm; Wt 45.4 kg
[2021-04-25] MEDS ORDERED: LISINOPRIL20 MG PO (12:32)
[2021-04-25] MEDS ORDERED: MEDROL4 MG PO (12:33)
[2021-04-25] MEDS ORDERED: TOPROL XL25 MG PO (12:33)
[2021-04-25] MEDS ORDERED: MUCINEX600 MG PO (12:34)
[2021-04-25] MEDS ORDERED: MACROBID 100 M100 MG PO (12:35)
[2021-04-25] MEDS ORDERED: NYSTATIN15 G3 TOP (12:35)
[2021-04-25] MEDS ORDERED: KLOR-CON 1010 MEQ PO (12:36)
[2021-04-25] MEDS ORDERED: ZANAFLEX2 M1 PO (12:37)
[2021-04-25] MEDS ORDERED: IBUPROFEN 400400 M2 PO (12:39)
[2021-04-25] MEDS ORDERED: LOPERAMIDE2 MG PO (12:39)
[2021-04-25] MEDS ORDERED: HYDROCODON-ACE1 EAC7 PO (12:39)
[2021-04-25] MEDS ORDERED: ONDANSETRON ODT4 MG PO (12:40)
[2021-04-25] MEDS ORDERED: PRED FORTE 1% EY5 M1 OPHTHALMIC (12:40)
--- NOTE | 2021-04-25 12:54 | EKG ---
[place] [address] ELECTROCARDIOGRAM REPORT Name: RAVIJENNIFER Sarah Room: [facility]#: [id number] Admission: 04/25/21 Attend Phys: Discharge: Date of : 43 Date of Service: 04/25/21 1235 Report #: [id number] THIS REPORT FOR: //name// [facility] ED Test Date: 2021-04-25 Test Time: 12:35:33 Pat Name: JENNIFER RODRIGUES Department: Room: Gender: Account Support Specialist: : 1945 Requested By: Adarsh Starkey Order Number: [id number] MD: Lexa Wagner Measurements Intervals Debary Rate: 56 P: 65 MO: 136 QRS: 6 QRSD: 89 T: 36 QT: 431 QTc: 416 Interpretive Statements Sinus rhythm Anterior infarct, old Compared to ECG 06/24/2018 14:04:05 Myocardial infarct finding now present ST (T wave) deviation no longer present Electronically Signed On 04-25-2021 12:54:23 CDT by Lexa Wagner [email or web address] <ELECTRONICALLY SIGNED> By: Lexa Wagner MD, FACC 04/25/21 1254 1235 1235 Lexa Wagner MD, FAC /EPI
[2021-04-25 13:03] LABS: ABSOLUTE BASOPHILS 0.2 thou/uL (0.0-0.2); ABSOLUTE EOSINOPHILS 0.1 thou/uL (0.0-0.7); ABSOLUTE MONOCYTES 0.6 thou/uL (0.0-1.2); ABSOLUTE NEUTROPHILS 15.5 thou/uL (1.6-8.1); EOSINOPHILS 0.3 %; HEMOGLOBIN 13.9 gm/dL (12.0-15.0); LYMPHOCYTES 5.7 %; MCH 31.9 pg (26.0-34.0); MCV 96.6 fL (80.0-100.0); MONOCYTES 3.5 %; MPV 7.6 fl. (7.2-11.1); NUCLEATED RBCS 0 /100WBC; PLATELET COUNT* 369 thou/uL (150-400); POLYS 89.5 %; RBC 4.35 mil/uL (4.20-5.00); RDW-CV 13.5 % (10.5-14.5); WBC 17.4 thou/uL (4.0-11.0)
[2021-04-25 13:14] LABS: CALCIUM 8.8 mg/dL (8.5-10.1); POTASSIUM 3.8 mmol/L (3.5-5.1)
[2021-04-25 13:24] LABS: ALBUMIN 3.9 g/dL (3.4-5.0); TOTAL BILIRUBIN 0.6 mg/dL (<0.1-1.0); TOTAL PROTEIN 7.8 g/dL (6.4-8.2)
[2021-04-25 14:48] VITALS: BP 196/106
== END 2021-04-25 14:48 | disposition home or self-care (01) ==
LOC: M.ERS 12:31
PROVIDERS: Family Medicine
DX: R53.1 Weakness (principal); I13.0 Hypertensive heart and chronic kidney disease with heart failure and stage 1 through stage 4 chronic kidney disease, or unspecified chronic kidney disease; N18.30 Chronic kidney disease, stage 3 unspecified; Z98.890 Other specified postprocedural states; Z86.73 Personal history of transient ischemic attack (TIA), and cerebral infarction without residual deficits; Z91.048 Other nonmedicinal substance allergy status